=== PATIENT | female | born 1990 ===

== ENCOUNTER 2017-07-09 20:16 | Emergency (ER) | payer MEDICAID ==
[2017-07-09 20:23] VITALS: BP 111/73; PULSE 84; RESP 16; O2SAT 100
--- NOTE | 2017-07-09 20:30 | ED PDOC ---
Lower Extremity Pain/Injury Time Seen by Provider: 07/09/17 20:28 Chief Complaint (Nursing): Lower Extremity Problem/Injury Chief Complaint (Provider): Left toe injury History Per: Patient History/Exam Limitations: no limitations Onset/Duration Of Symptoms: Mins Current Symptoms Are (Timing): Still Present Additional Complaint(s): 26 year old female presented to ED via ems complaining of left toe pain prior to arrival. Patient was at the restaurant when a metal slab fell on her left toes. Patient indicates swelling and abrasion are present. Of note, patient is 9 weeks and tetanus shot is up to date. PCP: none provided Past Medical History Reviewed: Historical Data, Nursing Documentation, Vital Signs Vital Signs: Last Vital Signs Temp 98.6 F 07/09/17 20:20 Pulse 84 07/09/17 20:20 Resp 16 07/09/17 20:20 BP 111/73 07/09/17 20:20 Pulse Ox 100 07/09/17 20:20 - Medical History PMH: No Chronic Diseases - Surgical History Surgical History: No Surg Hx - Family History Family History: States: Unknown Family Hx - Home Medications Home Medications: Ambulatory Orders Medication Instructions Recorded Bacitracin Ointment [Bacitracin] 0.5 gm TOP BID #1 tube 07/09/17 - Allergies Allergies/Adverse Reactions: Allergies Allergy/AdvReac Type Severity Reaction Status Date / Time No Known Allergies Allergy Verified 07/09/17 20:19 Review of Systems ROS Statement: Except As Marked, All Systems Reviewed And Found Negative Musculoskeletal: Positive for: Other (Left toe pain with swelling and abrasion) Physical Exam - Reviewed Nursing Documentation Reviewed: Yes Vital Signs Reviewed: Yes - Physical Exam Appears: Positive for: Non-toxic Head Exam: Positive for: ATRAUMATIC, NORMAL INSPECTION, NORMOCEPHALIC Skin: Positive for: Normal Color, Warm, Dry Eye Exam: Positive for: Normal appearance Neck: Positive for: Normal, Painless ROM Neurologic/Psych: Positive for: Alert, Oriented Comments: LEFT TOES: (+) swelling, (+) abrasion present - ECG O2 Sat by Pulse Oximetry: 100 (RA) Pulse Ox Interpretation: Normal - Progress ED Course And Treament: foot left: fx of distal phalanx left toe. Toe buddytaped and patient given hard shoe. Medical Decision Making Medical Decision Making: Initial Impression: left foot pain Initial Plan: Tylenol 975mg PO X-ray left foot Scribe Attestation: Documented by Landon Law acting as a scribe for Betzy VALDERRAMA. Provider Scribe Attestation: All medical record entries made by the Scribe were at my direction and personally dictated by me. I have reviewed the chart and agree that the record accurately reflects my personal performance of the history, physical exam, medical decision making, and the department course for this patient. I have also personally directed, reviewed, and agree with the discharge instructions and disposition. Disposition - Clinical Impression Clinical Impression: Toe fracture, left - Patient ED Disposition Is Patient to be Admitted: No - Disposition Referrals: Podiatry Clinic [Outside] Disposition: Routine/Home Disposition Time: 21:46 Condition: FAIR Prescriptions: Bacitracin Ointment [Bacitracin] 0.5 gm TOP BID #1 tube Instructions: Toe Fracture (DC), Skin Abrasions (DC) Forms: [employer] [place] (Danish)
[2017-07-09 22:13] VITALS: TEMP 98.5
--- NOTE | 2017-07-10 15:38 | RAD ---
PROCEDURE: Left Foot Radiographs. HISTORY: injury COMPARISON: None. FINDINGS: BONES: Nondisplaced oblique intra-articular fracture medial base of 1st distal phalanx. JOINTS: Normal. SOFT TISSUES: Normal. OTHER FINDINGS: None. IMPRESSION: Nondisplaced oblique intra-articular fracture medial base of 1st distal phalanx. No additional abnormality.
== END 2017-07-09 22:12 | disposition home or self-care (01) ==
LOC: H.ER 20:16
DX: S92.302A Fracture of unspecified metatarsal bone(s), left foot, initial encounter for closed fracture (principal); W22.8XXA Striking against or struck by other objects, initial encounter; Y92.89 Other specified places as the place of occurrence of the external cause; Z33.1 Pregnant state, incidental